=== PATIENT | male | born 1985 | race American Indian/Alaskan Native ===

== ENCOUNTER 2017-01-21 01:48 | Emergency (ER) | payer OTHER ==
[2017-01-21 02:07] VITALS: BP 130/73
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
--- NOTE | 2017-01-21 09:01 | Cat Scan Report ---
FINAL REPORT PROCEDURE: CT LUMBAR SPINE WO CON TECHNIQUE: Computerized axial tomography of the lumbar spine was performed from T12 to the sacrum without contrast material. HISTORY: pain/difficulty sitting COMPARISON: No prior studies are available for comparison. FINDINGS: L1-2: Slight disc degeneration. Spinal canal 15 millimeters L2-3: Slight disc bulging. Spinal canal 13 millimeters L3-4: Mild broad disc bulging with minimal bilateral neuroforaminal narrowing. Spinal canal 12 millimeters. L4-5: Mild broad disc bulging with mild left paracentral component. Suspect mild to moderate left and mild right neuroforaminal narrowing. Spinal canal 13 millimeters. L5-S1: Moderate broad disc bulge with central left paracentral disc protrusion with resultant suspected severe left neuroforaminal narrowing and moderate right neuroforaminal narrowing. Disc impresses on the posterior left paracentral thecal sac. Spinal canal 12 millimeters. Other: Hypoplastic right L1 transverse process. IMPRESSION: Predominant finding of broad disc bulge with large central to left paracentral disc protrusion and significant neuroforaminal compromise and narrowing as described. Other details above Suggest follow-up MRI lumbar spine to further evaluate.
[2017-01-21] MEDS ORDERED: TORADOL IM ONE (09:14)
[2017-01-21] MEDS ORDERED: DELTASONE PO ONE (09:14)
== END 2017-01-21 09:35 | disposition home or self-care (01) ==
LOC: ED 01:48
DX: S39.012A Strain of muscle, fascia and tendon of lower back, initial encounter (principal); M51.16 Intervertebral disc disorders with radiculopathy, lumbar region; J44.9 Chronic obstructive pulmonary disease, unspecified; F17.200 Nicotine dependence, unspecified, uncomplicated; X58.XXXA Exposure to other specified factors, initial encounter; Y93.89 Activity, other specified; Y92.89 Other specified places as the place of occurrence of the external cause; Y99.8 Other external cause status
CPT/HCPCS: 72131; 96372; 99283; J1885; J7512

== ENCOUNTER 2019-05-06 07:54 | Outpatient (CLI) | payer OTHER ==
[2019-05-06] MEDS ORDERED: PROVENTIL IH ONE (08:30)
== END 2019-05-06 07:55 | disposition home or self-care (01) ==
LOC: PF 07:54
PROVIDERS: ATTEND Internal Medicine
DX: Z02.71 Encounter for disability determination (principal); J43.9 Emphysema, unspecified
CPT/HCPCS: 94060; 94640